=== PATIENT | male | born 1995 | race Caucasian/White ===

== ENCOUNTER 2024-01-09 21:15 | Emergency (ER) | payer OTHER ==
--- NOTE | 2024-01-09 22:12 | RAD REPORT ---
EXAM DESCRIPTION: Sherrie Single View01/09/2024 10:05 pm CLINICAL HISTORY: Chest pain COMPARISON: none FINDINGS: The lungs appear clear of acute infiltrate. The heart is normal size IMPRESSION: No acute abnormalities displayed
[2024-01-09 22:29] LABS: PT Prothrombin Time 11.3 SECONDS (9.4-12.5); Protime INR 1.03
[2024-01-09 22:41] LABS: Absolute Basophils 0.1 K/uL (0-0.5); Absolute Eosinophils 0.2 K/uL (0-0.5); Absolute Monocytes 0.8 K/uL (0.1-1.3); Absolute Neutrophil 4.7 K/uL (1.8-8.0); Basophils % 1.1 % (0-1.3); Eosinophils % 3.1 % (0-4.4); Hematocrit 42.9 % (39.6-49.0); Hemoglobin 14.1 g/dL (13.6-17.9); Lymphocytes % 25.7 % (15.3-44.8); MCH 28.9 pg (27.0-35.0); MCHC 32.9 g/dL (32.0-36.0); MCV 87.6 fL (80-100); MPV 8.5 fL (7.6-11.3); Monocytes % 10.1 % (3.3-12.3); Platelets 395 thou/uL (152-406); RBC Red Blood Cell Count 4.89 M/uL (4.33-5.43); Red Cell Distribution Width 13.9 % (12.1-15.2)
[2024-01-09 23:12] LABS: ALT/SGPT 60 U/L (16-61); AST/SGOT 29 U/L (15-37); Albumin 3.8 g/dL (3.4-5.0); Albumin/Globulin Ratio 1.1 (1.1-1.8); Alkaline Phosphatase 75 U/L (45-117); BUN Blood Urea Nitrogen 9 mg/dL (7-18); Bicarbonate 29 mEq/L (21-32); Bilirubin Direct < 0.2 mg/dL (0-0.2); Bilirubin Indirect, Calculated 0.4 mg/dL (0.2-0.8); Bilirubin Total 0.6 mg/dL (0.2-1.0); Globulin 3.6 g/dL (2.3-3.5); Glomerular Filtration Rate 90 ml/min (=/>90); Glucose Level 90 mg/dL (74-106); Magnesium 2.1 mg/dL (1.6-2.4); Protein, Total 7.4 g/dL (6.4-8.2); Sodium Level 139 mEq/L (136-145); Troponin High Sensitivity 3.9 pg/mL (<58.9)
--- NOTE | 2024-01-09 23:52 | EDPHYS ---
Physician Documentation [facility] Name: Darwin Serra Age: 28 yrs Sex: Male : 1995 Arrival Date: 01/09/2024 Time: 21:15 Bed 3 Private MD: ED Physician Jayden Dempsey HPI: 01/08 23:00 This 28 yrs old Male presents to ER via Ambulatory with complaints of Chest Pain. cp 23:00 Patient presents to ED with c/o palpitations that started earlier today and now having cp chest pressure for the past 1 hour. Historical: - Allergies: 21:42 No Known Allergies; al5 - Home Meds: 21:42 None [Active]; al5 - PMHx: 21:42 Sleep apnea; al5 - Immunization history:: Adult Immunizations up to date. - Infectious Disease History:: Denies. - Social history:: Smoking status: Reported history of juuling and/or vaping. ROS: 23:05 Constitutional: Negative for body aches, chills, fever, poor PO intake, cp 23:05 Cardiovascular: Positive for chest pain, palpitations, Negative for edema, 23:05 Eyes: Negative for injury, pain, redness, and discharge, cp 23:05 ENT: Negative for drainage from ear(s), ear pain, sore throat, difficulty swallowing, difficulty handling secretions, 23:05 Respiratory: Negative for cough, shortness of breath, wheezing, 23:05 Abdomen/GI: Negative for abdominal pain, vomiting, diarrhea, constipation, 23:05 Neuro: Negative for altered mental status, dizziness, headache, numbness, syncope, near syncope, weakness, 23:05 All other systems are negative, Exam: 21:37 ECG was reviewed by the Attending Physician. cp 23:10 Constitutional: The patient appears in no acute distress, alert, awake, comfortable, cp non-diaphoretic, non-toxic, well developed, well nourished, 23:10 Head/Face: Normocephalic, atraumatic. cp 23:10 Eyes: Periorbital structures: appear normal, Conjunctiva: normal, no exudate, no injection, Sclera: no appreciated abnormality, Lids and lashes: appear normal, bilaterally, 23:10 ENT: External ear(s): are unremarkable, Nose: is normal, Mouth: Lips: moist, Oral mucosa: pink and intact, moist, Posterior pharynx: is normal, airway is patent, no erythema, no exudate, 23:10 Chest/axilla: Inspection: normal, 23:10 Cardiovascular: Rate: normal, Rhythm: regular, Edema: is not appreciated, JVD: is not appreciated, 23:10 Respiratory: the patient does not display signs of respiratory distress, Respirations: normal, no use of accessory muscles, no retractions, labored breathing, is not present, Breath sounds: are clear throughout, no decreased breath sounds, no stridor, no wheezing, 23:10 Abdomen/GI: Inspection: abdomen appears normal, Palpation: abdomen is soft and non-tender, in all quadrants, 23:10 Back: pain, is absent, ROM is normal, 23:10 Neuro: Orientation: to person, place \T\ time. Mentation: is normal, Cerebellar function: is grossly normal, Motor: moves all fours, strength is normal, Sensation: is normal, Vital Signs: 21:41 BP 128 / 86; Pulse 93; Resp 18; Temp 97.7(TE); Pulse Ox 100% on R/A; Weight 115.67 kg; al5 Height 6 ft. 0 in. ; Pain 0/10; 22:13 BP 121 / 78; Pulse 72; Resp 17 S; Pulse Ox 99% on R/A; ha1 01/09 00:47 BP 125 / 75; Pulse 57; Resp 18; Pulse Ox 100% on R/A; pc2 01/08 21:41 Body Mass Index 34.58 (115.67 kg, 182.88 cm) al5 01/08 21:41 Pain Scale: Adult al5 MDM: 01/08 21:36 Patient medically screened. blake 22:00 Differential diagnosis: acute myocardial infarction, anxiety, coronary artery disease cp costochondritis, pleurisy, pneumonia, pulmonary embolus. 23:50 Data reviewed: vital signs, nurses notes, lab test result(s), EKG, radiologic studies, cp plain films, and as a result, I will discharge patient. 23:50 Independent interpretation of the following test(s) in the Emergency Department EKG: cp See my EKG interpretation above. Counseling: I had a detailed discussion with the patient and/or guardian regarding the historical points, exam findings, and any diagnostic results supporting the discharge/admit diagnosis, lab results, radiology results, to return to the emergency department if symptoms worsen or persist or if there are any questions or concerns that arise at home. 01/08 21:43 Order name: Basic Metabolic Panel; Complete Time: 23:47 cp 01/08 23:47 Interpretation: Normal except: CL 108. cp 01/08 21:43 Order name: CBC with Diff; Complete Time: 23:47 cp 01/08 21:43 Order name: LFT's; Complete Time: 23:47 cp 01/08 21:43 Order name: Magnesium; Complete Time: 23:47 cp 01/08 21:43 Order name: PT-INR; Complete Time: 23:47 cp 01/08 21:43 Order name: Troponin HS; Complete Time: 23:47 cp 01/08 21:43 Order name: XRAY Chest (1 view); Complete Time: 23:47 cp 01/08 21:43 Order name: EKG; Complete Time: 21:44 cp 01/08 21:43 Order name: Cardiac monitoring; Complete Time: 22:11 cp 01/08 21:43 Order name: EKG - Nurse/Tech; Complete Time: 21:47 cp 01/08 21:43 Order name: IV Saline Lock; Complete Time: 22:11 cp 01/08 21:43 Order name: Labs collected and sent; Complete Time: 22:11 cp 01/08 21:43 Order name: O2 Per Protocol; Complete Time: 22:11 cp 01/08 21:43 Order name: O2 Sat Monitoring; Complete Time: 22:11 cp EC:37 Rate is 99 beats/min. Rhythm is regular. KS interval is normal. QRS interval is normal. cp QT interval is normal. T waves are Inverted. Interpreted by me. Reviewed by me. Administered Medications: No medications were administered Disposition: 01/09 07:50 Co-signature as Attending Physician, Jayden Dempsey MD I agree with the assessment and blake plan of care. Disposition Summary: 01/09/24 23:51 Discharge Ordered Notes: Location: Home cp Problem: new cp Symptoms: have improved cp Condition: Stable cp Diagnosis - Palpitations cp - Chest pain, unspecified cp Followup: cp - With: Mckay Martino MD - When: 1 week - Reason: symptoms continue Discharge Instructions: - Discharge Summary Sheet cp - Nonspecific Chest Pain, Adult cp - Palpitations cp - Aspirin and Your Heart cp Forms: - Medication Reconciliation Form cp - Antibiotic Education cp - Prescription Opioid Use cp - Patient Portal Instructions cp - Leadership Thank You Letter cp Signatures: Dispatcher [employer] Jayden Webber MD MD cha Page, Corey, PA PA cp Langhorst, Amanda, RN RN al5
--- NOTE | 2024-01-09 23:52 | ER ---
Nurse's Notes [facility] Name: Darwin Serra Age: 28 yrs Sex: Male : 1995 Arrival Date: 01/09/2024 Time: 21:15 Bed 3 Private MD: Diagnosis: Palpitations;Chest pain, unspecified Presentation: 01/08 21:41 Chief complaint: Patient states: c/o chest pain x1 hour, palpitations have been going al5 on all day, somewhat continuous and intermittent. Coronavirus screen: At this time, the client does not indicate any symptoms associated with coronavirus-19. Ebola Screen: No symptoms or risks identified at this time. Initial Sepsis Screen: Does the patient meet any 2 criteria? No. Patient's initial sepsis screen is negative. Does the patient have a suspected source of infection? No. Patient's initial sepsis screen is negative. Risk Assessment: Do you want to hurt yourself or someone else? Patient reports no desire to harm self or others. Onset of symptoms was January 09, 2024. 21:41 Method Of Arrival: Ambulatory al5 21:41 Acuity: GALEN 2 al5 Historical: - Allergies: 21:42 No Known Allergies; al5 - Home Meds: 21:42 None [Active]; al5 - PMHx: 21:42 Sleep apnea; al5 - Immunization history:: Adult Immunizations up to date. - Infectious Disease History:: Denies. - Social history:: Smoking status: Reported history of juuling and/or vaping. Screenin:[facility] ED Fall Risk Assessment (Adult) History of falling in the last 3 months, ha1 including since admission No falls in past 3 months (0 pts) Confusion or Disorientation No (0 pts) Intoxicated or Sedated No (0 pts) Impaired Gait No (0 pts) Mobility Assist Device Used No (0 pt) Altered Elimination No (0 pt) Score/Fall Risk Level 0 - 2 = Low Risk Oriented to surroundings, Maintained a safe environment, Educated pt \T\ family on fall prevention, incl call for assistance when getting out of bed, Hourly rounding (assess needs \T\ fall precautionary measures) done. Abuse screen: Denies threats or abuse. Denies injuries from another. Nutritional screening: No deficits noted. Tuberculosis screening: No symptoms or risk factors identified. Assessment: 22:00 General: Appears comfortable, Behavior is calm, cooperative. Pain: Denies pain. Neuro: ha1 Level of Consciousness is awake, alert, obeys commands, Oriented to person, place, time, situation. Cardiovascular: Reports having chest pain one hour ago but not any more Denies chest pain, Heart tones S1 S2 present Patient's skin is warm and dry. Rhythm is sinus rhythm. Respiratory: Airway is patent Respiratory effort is even, unlabored, Respiratory pattern is regular, symmetrical. 22:00 Pain: Pain does not radiate. Pain began gradually. pc2 23:10 Reassessment: Patient appears in no apparent distress at this time. Patient and/or pc2 family updated on plan of care and expected duration. Pain level reassessed. 01/09 00:52 Reassessment: Patient and/or family updated on plan of care and expected duration. Pain pc2 level reassessed. Patient is alert, oriented x 3, equal unlabored respirations, skin warm/dry/pink. Patient states feeling better. Patient states symptoms have improved. Vital Signs: 01/08 21:41 BP 128 / 86; Pulse 93; Resp 18; Temp 97.7(TE); Pulse Ox 100% on R/A; Weight 115.67 kg; al5 Height 6 ft. 0 in. ; Pain 0/10; 22:13 BP 121 / 78; Pulse 72; Resp 17 S; Pulse Ox 99% on R/A; ha1 01/09 00:47 BP 125 / 75; Pulse 57; Resp 18; Pulse Ox 100% on R/A; pc2 01/08 21:41 Body Mass Index 34.58 (115.67 kg, 182.88 cm) al5 01/08 21:41 Pain Scale: Adult al5 ED Course: 01/08 21:18 Patient arrived in ED. mg5 21:21 Jayden Savage PA is PHCP. cp 21:21 Jayden Dempsey MD is Attending Physician. cp 21:42 Triage completed. al5 21:43 Arm band placed on left wrist. Patient placed in an exam room, on a stretcher. al5 22:00 Inserted saline lock: 20 gauge in right antecubital area, using aseptic technique. ha1 Blood collected. 22:00 O2 via room air. pc2 22:07 XRAY Chest (1 view) In Process Unspecified. EDMS 22:11 Basic Metabolic Panel Sent. ha1 22:11 CBC with Diff Sent. ha1 22:11 LFT's Sent. ha1 22:11 Magnesium Sent. ha1 22:11 PT-INR Sent. ha1 22:11 Troponin HS Sent. ha1 23:00 Patient has correct armband on for positive identification. Provided Education on: pc2 follow up instructions. Client placed on continuous cardiac and pulse oximetry monitoring. NIBP monitoring applied. 23:50 Mckay Martino MD is Referral Physician. cp 01/09 00:53 No provider procedures requiring assistance completed. IV discontinued, intact, pc2 bleeding controlled, No redness/swelling at site. Pressure dressing applied. Administered Medications: No medications were administered Medication: 00:54 VIS not applicable for this client. pc2 Outcome: 01/08 23:51 Discharge ordered by . cp 01/09 00:53 Discharged to home ambulatory, with family, pc2 Condition: stable Discharge instructions given to patient, Instructed on discharge instructions, follow up and referral plans. Demonstrated understanding of instructions, follow-up care, 00:58 Patient left the ED. pc2 Signatures: Dispatcher [employer] EDMS Jayden Savage PA PA cp Shonda Monroe, RN RN ha1 Daylin Mariscal mg5 Vanessa Hollins RN RN al5 Nori Duran, RN RN pc2
[2024-01-10 01:22] VITALS: TEMP 97.7
[2024-01-10 01:41] VITALS: BP 125/75; O2SAT 100
--- NOTE | 2024-01-13 09:04 | EKG ---
Test Date: 2024-01-09 Test Time: 21:30:34 [employer] Operator: AF MEASUREMENT RESULTS: Intervals: Rate: 99 MS: 150 QRSD: 86 QT: 332 QTc: 426 [place]: P: 63 MS: 150 QRS: 61 T: 17 INTERPRETIVE STATEMENTS: Normal sinus rhythm Nonspecific T wave abnormality Abnormal ECG No previous ECG available for comparison Electronically Signed On 01-13-24 09:04:27 CDT by Armando Chamorro
== END 2024-01-10 00:58 | disposition home or self-care (01) ==
LOC: ER 21:15
DX: R00.2 Palpitations (principal); R07.89 Other chest pain
CPT/HCPCS: 36415; 71045; 80048; 80076; 83735; 84484; 85025; 85610; 93005; 99284